=== PATIENT | female | born 1975 | race Native Hawaiian/Other Pacific Islander ===

== ENCOUNTER 2017-11-25 09:52 | Outpatient (CLI) | payer BC | END 2017-11-25 22:49 | disposition home or self-care (01) | LOC: US 09:52 | DX: R10.11 Right upper quadrant pain (principal) ==

== ENCOUNTER 2018-01-27 11:04 | Outpatient (CLI) | payer BC | END 2018-01-27 22:09 | disposition home or self-care (01) | LOC: NM 11:04 | DX: R10.11 Right upper quadrant pain (principal) | CPT/HCPCS: A9537 ==

== ENCOUNTER 2019-05-25 07:53 | Outpatient (CLI) | payer BC ==
[~2019-05-25] VITALS: Ht 30.5 cm; Wt 0.5 kg
== END 2019-05-25 20:17 | disposition home or self-care (01) ==
LOC: NM 07:53
DX: R07.89 Other chest pain (principal); R00.2 Palpitations; R06.02 Shortness of breath; R94.31 Abnormal electrocardiogram [ECG] [EKG]
CPT/HCPCS: A9500; J2785

== ENCOUNTER 2021-03-07 13:58 | Outpatient (CLI) | payer BC | END 2021-03-07 21:04 | disposition home or self-care (01) | LOC: MAMMO 13:58 | PROVIDERS: ATTEND Obstetrics & Gynecology | DX: Z12.31 Encounter for screening mammogram for malignant neoplasm of breast (principal) ==

== ENCOUNTER 2021-12-02 13:23 | Outpatient (CLI) | payer BC | END 2021-12-02 19:13 | disposition home or self-care (01) | LOC: MAMMO 13:23 | PROVIDERS: ATTEND Internal Medicine | DX: N64.59 Other signs and symptoms in breast (principal) | CPT/HCPCS: G0279 ==